=== PATIENT | female | born 1985 | race Two or more races ===

== ENCOUNTER 2020-04-19 16:34 | Emergency (ER) | payer SELFPAY ==
[~2020-04-19] VITALS: Ht 154.9 cm; Wt 79.0 kg
[2020-04-19] MEDS ORDERED: MORPHINE SULFATE 4 MG/ML, 1ML IVPush ONE (17:00)
[2020-04-19] MEDS ORDERED: ONDANSETRON 2MG/ML, 2ML IVPush ONE (17:00)
[2020-04-19] MEDS ORDERED: SODIUM CHLORIDE FLUSH 10ML SYR IVF ONE (17:00)
[2020-04-19] MEDS ORDERED: MORPHINE SULFATE 4 MG/ML, 1ML ONE (17:17)
[2020-04-19] MEDS ORDERED: ONDANSETRON 2MG/ML, 2ML ONE (17:17)
--- NOTE | 2020-04-19 17:21 | NUR ---
FLOAT RN: PT C/O EPIGASTRIC ABD PAIN WITH NAUSEA. US IN ROOM. FAMILY AT BEDSIDE. VS STABLE. WILL CONTINUE TO MONITOR WHILE PRIMARY RN IS ON BREAK.
--- NOTE | 2020-04-19 17:33 | NUR ---
PRIMARY RN: HYDROELECTRIC STATION CHIEF AT BEDSIDE.
[2020-04-19 17:38] LABS: BASOPHILS % (AUTO) 1 % (0-1); EOSINOPHILS % (AUTO) 1 % (1-7); LYMPHOCYTES % (AUTO) 11 % (22-44); MEAN CORPUSCULAR HEMOGLOBIN 22.7 pg (27.0-34.8); MEAN CORPUSCULAR HGB CONC 32.1 g/dL (32.4-35.8); MEAN PLATELET VOLUME 9.2 fL (7.4-10.4); MONOCYTES % (AUTO) 5 % (2-9); NEUTROPHILS % (AUTO) 82 % (42-75); PLATELET COUNT 275 x10^3/uL (130-400); RED BLOOD COUNT 4.48 x10^6/uL (3.82-5.3); RED CELL DISTRIBUTION WIDTH 16.2 % (9.6-15.2)
--- NOTE | 2020-04-19 17:38 | NUR ---
RPEORT GIVEN TO RAEANN SMITH
[2020-04-19 17:43] LABS: MD MORPH REVIEW ONLY
[2020-04-19 17:47] LABS: ALBUMIN 3.8 g/dL (3.4-5.0); ANION GAP 6 mmol/L (5-15); CALCIUM 8.5 mg/dL (8.5-10.1); CHLORIDE 109 mmol/L (98-107)
[2020-04-19 17:52] LABS: ALANINE AMINOTRANSFERASE 579 U/L (12-78); ALKALINE PHOSPHATASE 145 U/L (45-117); CREATININE 0.79 mg/dL (0.55-1.02); TOTAL PROTEIN 7.7 g/dL (6.4-8.2)
--- NOTE | 2020-04-19 18:03 | NUR ---
PATIENT AMBULATED TO BATHROOM WITH STEADY GAIT.
--- NOTE | 2020-04-19 18:07 | NUR ---
ERMD AT BEDSIDE TO DISCUSS POC.
[2020-04-19 18:19] VITALS: BP 108/66
[2020-04-19 18:20] LABS: MICROCYTOSIS 1+
[2020-04-19 18:33] LABS: MICROSCOPIC INDICATED
[2020-04-19 18:42] LABS: <PLATELET ESTIMATE> ADEQUATE; <PLT MORPHOLOGY> NORMAL PLT MORPH
--- NOTE | 2020-04-19 19:26 | NUR ---
Patient given discharge instructions and prescriptions and they have confirmed that they understand the instructions. Controlled substance contract signed by patient. Patient stable and ambulatory with steady gait from ED with family member.
== END 2020-04-19 19:27 | disposition home or self-care (01) ==
LOC: ED 19:00
DX: K80.20 Calculus of gallbladder without cholecystitis without obstruction (principal); R74.01 Elevation of levels of liver transaminase levels; D64.9 Anemia, unspecified; R10.11 Right upper quadrant pain; R10.13 Epigastric pain; Z86.39 Personal history of other endocrine, nutritional and metabolic disease
CPT/HCPCS: 36415; 76700; 80053; 80074; 81001; 83690; 84703; 85025; 87086; 93005; 96374; 96375; 99285; J2270; J2405

== ENCOUNTER 2020-04-20 21:39 | Inpatient (IN) | payer SELFPAY ==
[~2020-04-20] VITALS: Ht 152.4 cm; Wt 79.8 kg
[2020-04-20] MEDS ORDERED: MORPHINE SULFATE 4 MG/ML, 1ML ONE (22:07)
[2020-04-20] MEDS ORDERED: ONDANSETRON 2MG/ML, 2ML ONE (22:07)
[2020-04-20 22:30] LABS: BASOPHILS % (AUTO) 1 % (0-1); EOSINOPHILS % (AUTO) 3 % (1-7); LYMPHOCYTES % (AUTO) 27 % (22-44); MEAN CORPUSCULAR HEMOGLOBIN 22.4 pg (27.0-34.8); MEAN CORPUSCULAR HGB CONC 31.9 g/dL (32.4-35.8); MEAN PLATELET VOLUME 9.2 fL (7.4-10.4); MONOCYTES % (AUTO) 7 % (2-9); NEUTROPHILS % (AUTO) 62 % (42-75); PLATELET COUNT 294 x10^3/uL (130-400); RED BLOOD COUNT 4.56 x10^6/uL (3.82-5.3)
[2020-04-20] MEDS ORDERED: ONDANSETRON 2MG/ML, 2ML IVPush ONE (22:30)
[2020-04-20] MEDS ORDERED: MORPHINE SULFATE 4 MG/ML, 1ML IVPush PRN (22:30)
[2020-04-20 22:34] LABS: MD NO
[2020-04-20 22:39] LABS: ALBUMIN 3.8 g/dL (3.4-5.0); ANION GAP 7 mmol/L (5-15); CALCIUM 8.9 mg/dL (8.5-10.1); CHLORIDE 107 mmol/L (98-107); CREATININE 0.79 mg/dL (0.55-1.02)
[2020-04-20 22:46] LABS: ALANINE AMINOTRANSFERASE 971 U/L (12-78); ALKALINE PHOSPHATASE 210 U/L (45-117); BILIRUBIN,TOTAL 1.3 mg/dL (0.2-1.0); TOTAL PROTEIN 7.9 g/dL (6.4-8.2)
--- NOTE | 2020-04-20 23:10 | NUR ---
ERMD AT BEDSIDE TO DISCUSS POC.
--- NOTE | 2020-04-20 23:29 | NUR ---
PATIENT RESTING IN GURNEY WATCHING TV, SIGNIFICANT OTHER AT BEDSIDE, NADN, VSS, CALL LIGHT WITHIN REACH.
--- NOTE | 2020-04-20 23:43 | NUR ---
PATIENT REPORTS PAIN LEVEL IS AT A 0/10 AT THIS TIME, NS HUNG, NO FURTHER NEEDS.
--- NOTE | 2020-04-20 23:55 | NUR ---
BEDSIDE REPORT RECEIVED FROM LUIS CARY
--- NOTE | 2020-04-20 23:59 | NUR ---
Pt to be admitted to [facility], room 340. Report called to [facility]ERI
[2020-04-21] MEDS ORDERED: OXYcodone IR 5MG TABLET PO PRN
[2020-04-21] MEDS ORDERED: ONDANSETRON 2MG/ML, 2ML IVPush PRN ×2
[2020-04-21] MEDS ORDERED: DOCUSATE 100 MG CAPSULE PO PRN
[2020-04-21] MEDS ORDERED: PROMETHAZINE 25 MG/ML, 1ML IM PRN
[2020-04-21] MEDS ORDERED: hydrALAzine 20 MG/ML, 1ML IVPush PRN
[2020-04-21] MEDS ORDERED: MORPHINE SULFATE 4 MG/ML, 1ML IVPush PRN
[2020-04-21] MEDS ORDERED: ONDANSETRON ODT 4 MG PO PRN
[2020-04-21] MEDS ORDERED: SODIUM CHLORIDE 0.9% 1,000 ML IV ONE
[2020-04-21] MEDS ORDERED: LEVO25TA2 PO (00:04)
[2020-04-21] MEDS: D5%-0.9% NACL 1,000 ML IV SCH ×2 (01:15→08:00)
[2020-04-21 01:52] VITALS: BP 103/67
[2020-04-21 05:13] LABS: ALBUMIN 3.3 g/dL (3.4-5.0); ANION GAP 4 mmol/L (5-15); CALCIUM 8.3 mg/dL (8.5-10.1); CHLORIDE 108 mmol/L (98-107)
[2020-04-21 05:17] LABS: BASOPHILS % (AUTO) 1 % (0-1); EOSINOPHILS % (AUTO) 5 % (1-7); LYMPHOCYTES % (AUTO) 41 % (22-44); MD NO; MEAN CORPUSCULAR HEMOGLOBIN 22.9 pg (27.0-34.8); MEAN CORPUSCULAR HGB CONC 32.4 g/dL (32.4-35.8); MEAN PLATELET VOLUME 9.2 fL (7.4-10.4); MONOCYTES % (AUTO) 8 % (2-9); NEUTROPHILS % (AUTO) 45 % (42-75); PLATELET COUNT 275 x10^3/uL (130-400); RED BLOOD COUNT 4.15 x10^6/uL (3.82-5.3); RED CELL DISTRIBUTION WIDTH 16.2 % (9.6-15.2)
[2020-04-21 05:23] LABS: ALANINE AMINOTRANSFERASE 818 U/L (12-78); ALKALINE PHOSPHATASE 179 U/L (45-117); BILIRUBIN,TOTAL 0.7 mg/dL (0.2-1.0); CHOLESTEROL, TOTAL 147 mg/dL (140-239); CREATININE 0.75 mg/dL (0.55-1.02); HDL CHOL % 33 % (28-40); HDL CHOLESTEROL (DIRECT) 49 mg/dL (40-60); LDL CHOLESTEROL,CALCULATED 76 mg/dL (54-169); LDL/HDL RATIO 1.6 (0.5-3.0); TOTAL PROTEIN 6.9 g/dL (6.4-8.2); TRIGLYCERIDES 111 mg/dL (50-200); VLDL CHOLESTEROL 22 mg/dL (0-25)
[2020-04-21 07:13] VITALS: BP 108/75
[2020-04-21] MEDS: LEVOTHYROXINE 25 MCG TABLET PO SCH (10:07)
[2020-04-21 14:25] VITALS: BP 101/69
[2020-04-21] MEDS ORDERED: EPINEPHRINE 1 MG/ML, 1ML ONE (15:53)
[2020-04-21] MEDS ORDERED: BUPIVACAINE/PF 0.5% ONE (15:53)
[2020-04-21 15:54] LABS: HCG UR SG 1.014 (1.003-1.030)
[2020-04-21] MEDS ORDERED: MIDAZOLAM 1 MG/ML, 2ML ONE (16:28)
[2020-04-21] MEDS ORDERED: FENTANYL PF 250 MCG/5ML ONE (16:28)
[2020-04-21] MEDS ORDERED: KETOROLAC 30 MG/1 ML ONE (16:30)
[2020-04-21] MEDS ORDERED: CEFOTETAN 1 GM ONE (16:39)
[2020-04-21] MEDS ORDERED: BUPIVACAINE/PF-EPI 0.5% 1:200K INFIL ONE (16:44)
[2020-04-21] MEDS ORDERED: PROPOFOL 10 MG/ML, 20ML ONE (16:57)
[2020-04-21] MEDS ORDERED: ROCURONIUM 10MG/ML,5ML ONE (16:57)
[2020-04-21] MEDS ORDERED: DEXAMETHASONE 4 MG/ML, 5ML ONE (16:58)
[2020-04-21] MEDS ORDERED: SUGAMMADEX 200 MG/2 ML IVPush ONE (16:58)
[2020-04-21] MEDS ORDERED: ONDANSETRON 2MG/ML, 2ML ONE ×2 (16:58)
[2020-04-21] MEDS ORDERED: OXYcodone 5 MG/5 ML ORAL.SOL UDC ONE (17:24)
[2020-04-21] MEDS ORDERED: FENTANYL PF 100 MCG/2ML ONE (17:24)
[2020-04-21] MEDS: FENTANYL PF 100 MCG/2ML IV PRN ×3 (17:25→17:40)
[2020-04-21] MEDS ORDERED: OXYcodone 5 MG/5 ML ORAL.SOL UDC PO PRN (17:30)
[2020-04-21] MEDS: morphine SULFATE 10 MG/ML, 1ML IVPush PRN ×2 (18:46→21:57)
[2020-04-21 18:47] VITALS: BP 109/71
[2020-04-21 19:10] VITALS: BP 107/70
[2020-04-22 00:14] VITALS: BP 115/77
[2020-04-22] MEDS: morphine SULFATE 10 MG/ML, 1ML IVPush PRN (04:37)
[2020-04-22 05:48] LABS: BASOPHILS % (AUTO) 0 % (0-1); EOSINOPHILS % (AUTO) 0 % (1-7); LYMPHOCYTES % (AUTO) 7 % (22-44); MEAN CORPUSCULAR HEMOGLOBIN 22.8 pg (27.0-34.8); MEAN CORPUSCULAR HGB CONC 32.2 g/dL (32.4-35.8); MEAN PLATELET VOLUME 9.4 fL (7.4-10.4); MONOCYTES % (AUTO) 6 % (2-9); NEUTROPHILS % (AUTO) 87 % (42-75); PLATELET COUNT 282 x10^3/uL (130-400); RED BLOOD COUNT 4.47 x10^6/uL (3.82-5.3); RED CELL DISTRIBUTION WIDTH 16.2 % (9.6-15.2)
[2020-04-22 05:54] LABS: ALBUMIN 3.5 g/dL (3.4-5.0); ANION GAP 7 mmol/L (5-15); CALCIUM 8.3 mg/dL (8.5-10.1); CHLORIDE 104 mmol/L (98-107)
[2020-04-22 05:59] LABS: % IRON SATURATION 4 % (20-55); ALANINE AMINOTRANSFERASE 693 U/L (12-78); ALKALINE PHOSPHATASE 168 U/L (45-117); BILIRUBIN,TOTAL 0.6 mg/dL (0.2-1.0); CREATININE 0.82 mg/dL (0.55-1.02); IRON LEVEL 19 mcg/dL (50-170); TOTAL IRON BINDING CAPACITY 450 mcg/dL (250-450); TOTAL PROTEIN 7.5 g/dL (6.4-8.2)
[2020-04-22 06:31] LABS: MD SCAN
[2020-04-22 06:47] VITALS: BP 104/64
[2020-04-22] MEDS: LEVOTHYROXINE 25 MCG TABLET PO SCH (07:27)
[2020-04-22] MEDS: HEPARIN 5,000 UNITS/ML, 1ML SQ SCH ×2 (08:25→15:30)
[2020-04-22] MEDS ORDERED: ACET325T26 PO (12:46)
== END 2020-04-22 15:38 | disposition home or self-care (01) | DRG 418 ==
LOC: ED 22:30 → EDIP 23:49 → 3N 04-21 00:48 → DCLOUNGE 04-22 15:25
PROVIDERS: ADMIT Internal Medicine; ATTEND Internal Medicine
PROC: 0FT44ZZ Resection of Gallbladder, Percutaneous Endoscopic Approach (ICD-10-PCS; principal; 2020-04-21 15:30)
DX: K80.12 Calculus of gallbladder with acute and chronic cholecystitis without obstruction (principal); E87.1 Hypo-osmolality and hyponatremia; E66.9 Obesity, unspecified; D50.9 Iron deficiency anemia, unspecified; E03.9 Hypothyroidism, unspecified; R73.03 Prediabetes; G47.30 Sleep apnea, unspecified; Z68.34 Body mass index [BMI] 34.0-34.9, adult; Z20.822 Contact with and (suspected) exposure to COVID-19
CPT/HCPCS: 36415; 96374; 96375; 99285; J7042; S0020; 74181; 76700; 80053; 80061; 81025; 82728; 83036; 83540; 83550; 83690; 83735; 84100; 84443; 85025; 87635; 88304; G0378; J0171; J1100; J1644; J1885; J2250; J2405; J2704; J3010; J2270; J7030